=== PATIENT | male | born 1970 | race Caucasian/White ===

== ENCOUNTER 2016-09-22 16:08 | Emergency (ER) | payer BC, OTHER ==
[~2016-09-22 16:08] MED LIST: GENTAMICIN 0.3% OPHTH SOL 1 DROP ONE; TETRACAINE HCL 0.5% OPHTH SOL 1 DROP ONE
[2016-09-22] MEDS ORDERED: OPHTHALMIC SALT SOLUTION 120 ML BTTL ONE (16:20)
[2016-09-22 16:25] VITALS: TEMP 97.6
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
[2016-09-22] MEDS ORDERED: KETOROLAC TROMETHAMINE INJ 60 MG/2 ML VIAL IM ONE (17:16)
[2016-09-22 17:27] VITALS: BP 126/88; O2SAT 99
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
[2016-09-22] MEDS ORDERED: IBUPROFEN 200 MG TAB PO ONE (18:01)
== END 2016-09-22 18:07 | disposition home or self-care (01) ==
LOC: ER 16:08
DX: S05.01XA Injury of conjunctiva and corneal abrasion without foreign body, right eye, initial encounter (principal); S00.83XA Contusion of other part of head, initial encounter; Z88.0 Allergy status to penicillin; W22.8XXA Striking against or struck by other objects, initial encounter; Y92.9 Unspecified place or not applicable
CPT/HCPCS: 70450; 72125; J1885

== ENCOUNTER → 2016-11-19 | Outpatient (CLI) | payer BC | END | disposition home or self-care (01) | LOC: GMAM 10:38 | PROVIDERS: ATTEND Family Medicine | DX: E03.9 Hypothyroidism, unspecified (principal) ==

== ENCOUNTER → 2016-12-25 | Outpatient (CLI) | payer BC ==
--- NOTE | 2016-12-25 10:05 | CT ---
EXAM DESCRIPTION: CTA Runoff CLINICAL HISTORY: CHECK FOR AAA COMPARISON: CT scan abdomen without contrast 05/29/2014. TECHNIQUE: CT angiography of the abdominal aorta and both lower extremities is performed during rapid bolus administration of IV contrast media. Three-dimensional reformatted imaging (created on the radiologist workstation) is reviewed along with helical axial 2.5 mm source images, and 2.0 mm helical coronal and sagittal reformats. Total Exam DLP: 2724 mGy-cm. This exam was performed according to our departmental CT dose-optimization program which includes automated exposure control, adjustment of the mA and/or kV according to patient size and/or use of iterative reconstruction technique; to reduce radiation dose to as low as reasonably achievable (ALARA). FINDINGS: Upper abdominal aorta: Minimal atherosclerotic calcification. No significant calcification of the ostia of the celiac axis or SMA. Normal caliber. Mid-abdominal aorta: Normal caliber. Single left renal artery. Main and accessory right renal arteries with no significant calcification in the arteries bilaterally. Minimal intimal wall thickening and calcification. Distal abdominal aorta: Minimal intimal wall thickening and calcification. Origin of the ANNETTE is unremarkable. Typical bifurcation. Common iliacs: Minimal atherosclerotic calcification bilaterally with no significant narrowing or aneurysm. Internal iliacs: Normal caliber bilaterally with no significant calcification. External iliac arteries: Negative bilaterally. [employer]'s: Normal caliber bilaterally with no significant calcification. SFA: No stenosis aneurysm or calcification bilaterally. Popliteal artery: Normal caliber bilaterally. trifurcation vessels: Good runoff bilaterally to just above the ankles. Other: Small bilateral fatty inguinal hernias not containing bowel. Bilateral hydroceles in the scrotum. Bilateral inguinal lymph nodes. Spondylosis in the spine. No free air or free fluid. No abdominal or pelvic peritoneal or retroperitoneal mass. IMPRESSION: 1. No significant atherosclerotic disease involving the aorta or the major branches originating from the aorta. No abdominal aortic aneurysm. 2. Bilateral fatty inguinal hernias not containing bowel. 3. Patient has a main and accessory right renal artery. Electronically signed by: Himanshu Abernathy MD 12/25/2016 10:03 AM [employer]
== END | disposition home or self-care (01) ==
LOC: LAB.O 07:29
PROVIDERS: ATTEND Family Medicine
DX: K40.90 Unilateral inguinal hernia, without obstruction or gangrene, not specified as recurrent (principal); I71.4 Abdominal aortic aneurysm, without rupture

== ENCOUNTER → 2020-03-12 | Outpatient (CLI) | payer BC | LOC: GMAM 14:29 | PROVIDERS: ATTEND Family Medicine | DX: M25.552 Pain in left hip (principal) ==